=== PATIENT | female | born 1940 ===

== ENCOUNTER 2017-03-13 13:46 | Emergency (ER) | payer OTHER, MEDICARE ==
[2017-03-13 13:46] VITALS: BMI 33.9
[2017-03-13 14:53] VITALS: RESP 20; TEMP 98.4
[2017-03-13 15:52] VITALS: BP 108/67; PULSE 70; O2SAT 96
--- NOTE | 2017-03-13 15:57 | RAD ---
HISTORY: COMPARISON: No prior. TECHNIQUE: Chest PA and lateral FINDINGS: LINES AND TUBES: None. LUNG AND PLEURA: The lungs are well inflated and clear. HEART AND MEDIASTINUM: There is mild cardiomegaly. Status post CABG. The hilar and mediastinal contours are within normal limits. SKELETAL STRUCTURES: The bony structures are within normal limits for the patient's age. VISUALIZED UPPER ABDOMEN: Normal. OTHER FINDINGS: None. IMPRESSION: No active pulmonary disease.
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
--- NOTE | 2017-03-16 09:12 | CARD ---
APPROVED REPORT EKG Measurement Heart [id number] <Conclusion> Sinus rhythm with premature supraventricular complexes Otherwise normal ECG
== END 2017-03-13 16:46 | disposition home or self-care (01) ==
LOC: C.ER 13:46
DX: T14.8XXA Other injury of unspecified body region, initial encounter (principal); V49.9XXA Car occupant (driver) (passenger) injured in unspecified traffic accident, initial encounter; E03.9 Hypothyroidism, unspecified; E78.00 Pure hypercholesterolemia, unspecified; I10 Essential (primary) hypertension